=== PATIENT | male | born 1960 | race Caucasian/White ===

== ENCOUNTER 2016-11-08 | Emergency (ER) | payer MEDICAID ==
[~2016-11-08] MED LIST: "\\\"WATER PILL\\\""; ABREVA TOP; ALLOPURINOL100 M1 PO; ASPIRIN81 M1 PO; ASPIRIN81 MG PO; AUGMENTIN 875-1 EAC1 PO; AUGMENTIN 875-1 EAC2 PO; AUGMENTIN875 MG PO; BACITRACIN1 G1 TOP; BACTRIM DS TAB1 EAC2 PO; BACTRIM DS1 TA1 PO; BETAMETHASONE V15 G3 TOP; CEFUROXIME500 M1 PO; CLEOCIN HCL300 M1 PO; DOXYCYCLINE HY100 M5 PO; FLAGYL500 M1 PO; FLEXERIL10 MG PO; GABAPENTIN100 MG PO; GLUCAGON1 MG/KIT IM; GLUCOPHAGE1000 MG PO; GLUCOPHAGE500 M1 PO; GLUCOPHAGE500 M3 PO; GLUCOPHAGE500 MG PO; HUMALOG100 U/ML SQ; HUMALOG100 UNITS/ SC; HUMULIN N100 U/ML SQ; HUMULIN R100 U/ML SC; HUMULIN R100 U/ML SQ; HYDROCHLOROTHIA25 M1 PO; HYDROCHLOROTHIA50 MG PO; KEFLEX500 MG PO; LANTUS100 U/ML SC; LANTUS100 UNITS/ SC; LEVEMIR100 UNITS/ SC; LISINOPRIL2.5 MG PO; LISINOPRIL20 M1 PO; METFORMIN HCL1000 M2 PO; METFORMIN HCL500 M2 PO; NEURONTIN100 M1 PO; NEURONTIN100 MG PO; NORCO 5/325 TAB1 TAB PO; NOVOLIN 70100 UNITS/ SQ; NOVOLIN R100 UNIT/1 SQ; PERCOCET 5-3251 EACH PO; PLAVIX75 M1 PO; PRINIVIL10 M1 PO; SILVADENE20 GM TP; SULFAMYLON SOL250 M1 TOP; SULFAMYLON50 GM TOP; SULFAMYLON60 GM EXT; TOPROL XL50 M1 PO; TRAMADOL HCL50 MG PO; TYLENOL EXTRA500 M1 PO; TYLENOL325 MG PO; ULTRAM50 M1 PO; ULTRAM50 MG PO; ZESTORETIC 20-1 EAC4 PO; ZESTRIL10 MG PO; ZESTRIL2.5 M1 PO; ZESTRIL20 M1 PO; ZESTRIL40 M2 PO; ZITHROMAX250 M1 PO; ZOCOR20 MG PO; ZOCOR40 M1 PO; ZOCOR40 MG PO; ZOFRAN ODT4 MG PO
[2016-11-08] MEDS ORDERED: BACTRIM DS TAB1 EAC2 PO (12:26)
[2016-11-08] MEDS ORDERED: NORCO 5-325 TA1 EACH PO (12:26)
[2017-01-20] MEDS ORDERED: NEURONTIN300 M1 PO (15:54)
[2017-01-20] MEDS ORDERED: NOVOLOG MI100 UNITS/ SC (15:55)
[2017-01-20] MEDS ORDERED: PRINIVIL20 M1 PO (15:58)
[2017-01-21] MEDS ORDERED: TOPROL XL25 M1 PO (11:47)
[2017-01-21] MEDS ORDERED: LIPITOR20 M1 PO (11:47)
[2017-01-21] MEDS ORDERED: ASPIRIN81 M1 PO (11:50)
[2017-01-21] MEDS ORDERED: GLUCOPHAGE1000 M1 PO (12:02)
[2017-02-04] MEDS ORDERED: VIBRAMYCIN100 M1 PO (14:45)
[2017-03-05] MEDS ORDERED: GLUCOPHAGE1000 M1 PO (03:28)
[2017-03-14] MEDS ORDERED: NORVASC10 M2 PO (14:42)
[2017-03-14] MEDS ORDERED: LEXAPRO10 M2 PO (14:42)
[2017-03-14] MEDS ORDERED: NORCO 5-325 TA1 EACH PO (14:44)
[2017-03-14] MEDS ORDERED: CLEOCIN HCL300 M1 PO (14:45)
[2017-04-11] MEDS ORDERED: ATORVASTATIN CA20 M1 PO (13:03)
[2017-04-11] MEDS ORDERED: TOPROL XL25 M1 PO (13:03)
[2017-04-11] MEDS ORDERED: ASPIRIN EC81 MG PO (13:11)
[2017-04-11] MEDS ORDERED: NOVOLOG MI100 UNITS/ SC (13:13)
[2017-04-17] MEDS ORDERED: FEOSOL325 M1 PO (15:00)
[2017-04-17] MEDS ORDERED: VANCOMYCIN HCL500 MG IV (15:00)
[2017-04-17] MEDS ORDERED: NORCO 5-325 TA1 EACH PO (15:03)
[2017-04-17] MEDS ORDERED: SENOKOT-S TABL1 EACH PO (15:04)
[2017-04-17] MEDS ORDERED: TOPROL XL100 M1 PO (15:05)
== END 2016-11-08 12:55 ==
DX: L02.416 Cutaneous abscess of left lower limb (principal); I25.10 Atherosclerotic heart disease of native coronary artery without angina pectoris; E11.22 Type 2 diabetes mellitus with diabetic chronic kidney disease; I12.9 Hypertensive chronic kidney disease with stage 1 through stage 4 chronic kidney disease, or unspecified chronic kidney disease; N18.9 Chronic kidney disease, unspecified; Z98.49 Cataract extraction status, unspecified eye; Z87.891 Personal history of nicotine dependence; Z86.14 Personal history of Methicillin resistant Staphylococcus aureus infection; Z79.82 Long term (current) use of aspirin; Z79.4 Long term (current) use of insulin; Z79.899 Other long term (current) drug therapy